=== PATIENT | male | born 1995 | race Caucasian/White ===

== ENCOUNTER 2017-09-08 01:34 | Emergency (ER) | payer MEDICAID ==
[2017-09-08 02:04] LABS: BASO % 0.4 % (0-6); GRAN % 44.8 % (47-80); HEMATOCRIT 45.4 % (42.0-52.0); HEMOGLOBIN 16.1 gm/dl (14.0-18.0); LYMPH % 44.4 % (16-45); MEAN CORPUSCULAR HEMOGLOBIN 30.8 pg (27-33); MEAN CORPUSCULAR HGB CONC 35.5 g/dl (32-36); MEAN PLATELET VOLUME 8.9 fl (7.4-10.4); MONO % 8.4 % (0-9); PLATELET COUNT 285 K/uL (130-400); RED BLOOD COUNT 5.22 M/uL (4.40-5.70); RED CELL DISTRIBUTION WIDTH 12.3 % (11.5-14.5)
[2017-09-08 02:05] LABS: URINE APPEARANCE CLEAR; URINE BILIRUBIN NEGATIVE (NEGATIVE); URINE BLOOD NEGATIVE (NEGATIVE); URINE COLOR YELLOW; URINE GLUCOSE (UA) NEGATIVE (NEGATIVE); URINE KETONE NEGATIVE (NEGATIVE); URINE LEUKOCYTE ESTERASE NEGATIVE (NEGATIVE); URINE NITRITE NEGATIVE (NEGATIVE); URINE PROTEIN NEGATIVE (NEGATIVE); URINE UROBILINOGEN 0.2 E.U./dL (0.20 - 1.00)
[2017-09-08 02:06] LABS: AMPHETAMINE SCREEN URINE NOT DETECTED; BARBITURATE SCREEN URINE NOT DETECTED; BENZODIAZEPINE SCREEN URINE NOT DETECTED; COCAINE SCREEN URINE NOT DETECTED; METHADONE SCREEN URINE NOT DETECTED; METHAMPHETAMINE SCREEN NOT DETECTED; OPIATE SCREEN URINE NOT DETECTED; OXYCODONE SCREEN URINE NOT DETECTED; PHENCYCLIDINE SCREEN URINE NOT DETECTED; PROPOXYPHENE SCREEN URINE NOT DETECTED; THC SCREEN URINE DETECTED; TRICYCLIC ANTIDEPRESSANT SCRN NOT DETECTED
[2017-09-08 02:16] LABS: BLOOD UREA NITROGEN 16 mg/dL (6-20); CREATININE 0.7 mg/dL (0.7-1.2); EST GLOMERULAR FILTRATION RATE > 60 mL/min
[2017-09-08 02:17] LABS: TOTAL PROTEIN 6.8 g/dL (6.6-8.7)
[2017-09-08 02:19] LABS: GLUCOSE,RANDOM 94 mg/dL (74-109)
[2017-09-08 02:22] LABS: ALB/GLOB RATIO 1.7 (1.1-1.8); ALBUMIN 4.3 g/dL (4.0-5.0); ALKALINE PHOSPHATASE 50 U/L (40-129); ALT/SGPT 11 U/L (<41); AST/SGOT 15 U/L (10.0-50.0)
[2017-09-08 02:29] LABS: ALCOHOL 0.091 g/dL (0-0.010)
--- NOTE | 2017-09-08 03:08 | Emergency Department Record ---
History of Present Illness - General Chief Complaint: Crisis Evaluation Stated Complaint: INTOXICATED Time Seen by Provider: 09/08/17 01:41 Source: Patient Mode of Arrival: Ambulatory Limitations: No limitations Travel/Exposure to [place] Within 21 Days of Symptoms: No - History of Present Illness Initial Comments: pt brought in by police because he had threatened to blow his head off to his girlfriend and had apparently texted it to her the pt tells me. he has 1 previous suicide attempt. MD Complaint: Feels depressed, Suicidal ideation Onset/Timin -: Hour(s) Associated Psychiatric Symptoms: Suicidal ideation History of same: Yes Improves With: None Worsens With: None Associated Symptoms: Denies other symptoms Treatments Prior to Arrival: Placed on mental health hold If Self Harm: Admits thoughts of self harm - [place] Coma Scale Eye Response: (4) Open spontaneously Motor Response: (6) Obeys commands Verbal Response: (5) Oriented [place] Total: 15 - Related Data Home Medications Medication Instructions Recorded Confirmed Last Taken Aripiprazole [Abilify] 10 mg PO DAILY 09/08/17 09/08/17 Unknown Cholecalciferol (Vitamin D3) 5,000 unit PO WEEKLY 09/08/17 09/08/17 Unknown [Vitamin D3] Allergies Allergy/AdvReac Type Severity Reaction Status Date / Time Penicillins Allergy PT UNSURE Verified 09/08/17 01:53 OF REACTION Review of Systems Reviewed: No additional complaints except as noted below Constitutional: Reports: As per HPI. Denies: Chills, Fever, Malaise, Night sweats, Weakness, Weight change Eyes: Reports: As per HPI. Denies: Eye discharge, Eye pain, Photophobia, Vision change ENT: Reports: As per HPI. Denies: Congestion, Dental pain, Ear pain, Epistaxis , Hearing loss, Throat pain Respiratory: Reports: As per HPI. Denies: Cough, Dyspnea, Hemoptysis, Stridor, Wheezes Cardiovascular: Reports: As per HPI. Denies: Arrhythmia, Chest pain, Dyspnea on exertion, Edema, Murmurs, Orthopnea, Palpitations, Paroxysmal nocturnal dyspnea, Rheumatic Fever, Syncope Endocrine: Reports: As per HPI. Denies: Fatigue, Heat or cold intolerance, Polydipsia, Polyuria Gastrointestinal: Reports: As per HPI. Denies: Abdominal pain, Constipation, Diarrhea, Hematemesis, Hematochezia, Melena, Nausea, Vomiting Genitourinary: Reports: As per HPI. Denies: Dysuria, Frequency, Hematuria, Incontinence, Retention, Testicular pain, Testicular mass, Urgency Musculoskeletal: Reports: As per HPI. Denies: Arthralgia, Back pain, Gout, Joint swelling, Myalgia, Neck pain Skin: Reports: As per HPI. Denies: Bruising, Change in color, Change in hair/ nails, Lesions, Pruritus, Rash Neurological: Reports: As per HPI. Denies: Abnormal gait, Confusion, Headache, Numbness, Paresthesias, Seizure, Tingling, Tremors, Vertigo, Weakness Psychiatric: Reports: As per HPI, Suicidal thoughts. Denies: Anxiety, Auditory hallucinations, Depression, Homicidal thoughts, Visual hallucinations Hematological/Lymphatic: Reports: As per HPI. Denies: Anemia, Blood Clots, Easy bleeding, Easy bruising, Swollen glands Past Medical History - SOCIAL HISTORY Smoking Status: Current every day smoker Alcohol Use Comment: 7-8 beers 2-3 times per week Drug Use: Occasional Drug Use Detail:: Marijuana - RESPIRATORY Hx Respiratory Disorders: No - CARDIOVASCULAR Hx Cardio Disorders: No - NEURO Hx Neuro Disorders: No - GI Hx GI Disorders: No - Hx Genitourinary Disorders: No - ENDOCRINE Hx Endocrine Disorders: No - MUSCULOSKELETAL Hx Musculoskeletal Disorders: No - PSYCH Hx Psych Problems: No - HEMATOLOGY/ONCOLOGY Hx Hematology/Oncology Disorders: No Family Medical History Any Significant Family History?: No Physical Exam - General General Appearance: Alert, Oriented x3, Cooperative, Mild distress - Head Head exam: Normal inspection - Eye Eye exam: Normal appearance, PERRL, EOMI Pupils: Normal accommodation - ENT ENT exam: Normal exam, Mucous membranes moist, Normal external ear exam, Normal orophraynx Ear exam: Normal external inspection. negative: External canal tenderness Nasal Exam: Normal inspection. negative: Discharge, Sinus tenderness Mouth exam: Normal external inspection, Tongue normal Teeth exam: Normal inspection. negative: Dental caries Throat exam: Normal inspection. negative: Tonsillar erythema, Tonsillar exudate - Neck Neck exam: Normal inspection, Full ROM. negative: Tenderness - Respiratory Respiratory exam: Normal lung sounds bilaterally. negative: Respiratory distress - Cardiovascular Cardiovascular Exam: Regular rate, Normal rhythm, Normal heart sounds - GI/Abdominal GI/Abdominal exam: Soft, Normal bowel sounds. negative: Tenderness - Rectal Rectal exam: Deferred - exam: Deferred - Extremities Extremities exam: Normal inspection, Full ROM, Normal capillary refill. negative: Tenderness - Back Back exam: Reports: Normal inspection, Full ROM. Denies: Muscle spasm, Rash noted, Tenderness - Neurological Neurological exam: Alert, CN II-XII intact, Normal gait, Oriented X3 - Psychiatric Psychiatric exam: Depressed, Normal mood, Suicidal ideation - Skin Skin exam: Dry, Intact, Normal color, Warm Course Vital Signs 09/08/17 01:40 Temperature 98 F Pulse Rate [ 80 Pulse Ox Probe] Respiratory 20 Rate Blood Pressure 135/77 [Left Arm] Pulse Ox 98 Medical Decision Making - Lab Data Result diagrams: 09/08/17 01:49 09/08/17 01:49 Lab Results 09/08/17 09/08/17 09/08/17 Range/Units 01:49 01:49 01:49 WBC 8.0 (4.2-12.2) K/uL RBC 5.22 (4.40-5.70) M/uL Hgb 16.1 (14.0-18.0) gm/dl Hct 45.4 (42.0-52.0) % MCV 87.0 (81-97) fl MCH 30.8 (27-33) pg MCHC 35.5 (32-36) g/dl RDW 12.3 (11.5-14.5) % Plt Count 285 (130-400) K/uL MPV 8.9 (7.4-10.4) fl Gran % 44.8 L (47-80) % Lymphocytes % 44.4 (16-45) % Monocytes % 8.4 (0-9) % Eosinophils % 2.0 (0-6) % Basophils % 0.4 (0-6) % Sodium 138 (136-145) mmol/L Potassium 3.7 (3.4-4.5) mmol/L Chloride 101 (98-107) mmol/L Carbon Dioxide 22.0 (22-29) mmol/L Anion Gap 15.0 (7-16) BUN 16 (6-20) mg/dL Creatinine 0.7 (0.7-1.2) mg/dL Estimated GFR > 60 mL/min Random Glucose 94 (74-109) mg/dL Calcium 8.3 L (8.6-10.0) mg/dL Total Bilirubin 1.10 H (0.2-1.0) mg/dL AST 15 (10.0-50.0) U/L ALT 11 (<41) U/L Alkaline Phosphatase 50 (40-129) U/L Total Protein 6.8 (6.6-8.7) g/dL Albumin 4.3 (4.0-5.0) g/dL Globulin 2.5 (1.4-4.8) gm/dL Albumin/Globulin Ratio 1.7 (1.1-1.8) Urine Color Yellow Urine Appearance Clear Urine pH 6.0 (5.0-8.0) Ur Specific [place] 1.015 (1.002-1.030) Urine Protein Negative (NEGATIVE) Urine Glucose (UA) Negative (NEGATIVE) Urine Ketones Negative (NEGATIVE) Urine Blood Negative (NEGATIVE) Urine Nitrite Negative (NEGATIVE) Urine Bilirubin Negative (NEGATIVE) Urine Urobilinogen 0.2 (0.20 - 1.00) E.U./dL Ur Leukocyte Esterase Negative (NEGATIVE) Urine Opiates Screen Ur Oxycodone Screen Urine Methadone Screen Ur Propoxyphene Screen Ur Barbituates Screen Ur Tricyclics Screen Ur Phencyclidine Scrn Ur Amphetamine Screen U Methamphetamines Scrn U Benzodiazepines Scrn Urine Cocaine Screen Urine Cannabis Screen Ethyl Alcohol 0.091 H (0-0.010) g/dL 09/08/17 Range/Units 01:49 WBC (4.2-12.2) K/uL RBC (4.40-5.70) M/uL Hgb (14.0-18.0) gm/dl Hct (42.0-52.0) % MCV (81-97) fl MCH (27-33) pg MCHC (32-36) g/dl RDW (11.5-14.5) % Plt Count (130-400) K/uL MPV (7.4-10.4) fl Gran % (47-80) % Lymphocytes % (16-45) % Monocytes % (0-9) % Eosinophils % (0-6) % Basophils % (0-6) % Sodium (136-145) mmol/L Potassium (3.4-4.5) mmol/L Chloride (98-107) mmol/L Carbon Dioxide (22-29) mmol/L Anion Gap (7-16) BUN (6-20) mg/dL Creatinine (0.7-1.2) mg/dL Estimated GFR mL/min Random Glucose (74-109) mg/dL Calcium (8.6-10.0) mg/dL Total Bilirubin (0.2-1.0) mg/dL AST (10.0-50.0) U/L ALT (<41) U/L Alkaline Phosphatase (40-129) U/L Total Protein (6.6-8.7) g/dL Albumin (4.0-5.0) g/dL Globulin (1.4-4.8) gm/dL Albumin/Globulin Ratio (1.1-1.8) Urine Color Urine Appearance Urine pH (5.0-8.0) Ur Specific [place] (1.002-1.030) Urine Protein (NEGATIVE) Urine Glucose (UA) (NEGATIVE) Urine Ketones (NEGATIVE) Urine Blood (NEGATIVE) Urine Nitrite (NEGATIVE) Urine Bilirubin (NEGATIVE) Urine Urobilinogen (0.20 - 1.00) E.U./dL Ur Leukocyte Esterase (NEGATIVE) Urine Opiates Screen Not detected Ur Oxycodone Screen Not detected Urine Methadone Screen Not detected Ur Propoxyphene Screen Not detected Ur Barbituates Screen Not detected Ur Tricyclics Screen Not detected Ur Phencyclidine Scrn Not detected Ur Amphetamine Screen Not detected U Methamphetamines Scrn Not detected U Benzodiazepines Scrn Not detected Urine Cocaine Screen Not detected Urine Cannabis Screen Detected Ethyl Alcohol (0-0.010) g/dL Disposition Disposition: Transfer Clinical Impression: Suicidal behavior Qualifiers: Attempted self-injury: without attempted self-injury Qualified Code(s): R46.89 - Other symptoms and signs involving appearance and behavior Disposition: Acute Care Hospital Transfer Transfer To: [facility] Reason For Transfer: needs psych eval Accepting Physician: dr larkin Time Discussed w/Accepting Physician: 04:24 Forms: Patient Portal Access Quality - Quality Measures Quality Measures: N/A - Blood Pressure Screening Does Patient Have Any of the Following: No Blood Pressure Classification: Pre-Hypertensive BP Reading Systolic Measurement: 135 Diastolic Measurement: 77 Screening for High Blood Pressure: < Pre-Hypertensive BP, F/U Documented > [ [id number]] Pre-Hypertensive Follow-up Interventions: Follow-up with rescreen every year.
== END 2017-09-08 04:48 | disposition short-term general hospital (02) ==
LOC: ER 01:34
DX: R45.851 Suicidal ideations (principal); F10.129 Alcohol abuse with intoxication, unspecified; Y90.4 Blood alcohol level of 80-99 mg/100 ml
CPT/HCPCS: 99285 ×2; 85025; 80053; 81003; 80305; G0480; 80320